=== PATIENT | male | born 1980 | race Hispanic/Latino ===

== ENCOUNTER 2022-09-16 15:01 | Inpatient (IN) | payer OTHER ==
[~2022-09-16] VITALS: Ht 177.8 cm; Wt 77.1 kg
[2022-09-16 17:51] LABS: BASOPHILS % (AUTO) 0.5 % (0.0-5.0); EOSINOPHILS % (AUTO) 1.3 % (0.0-8.0); HEMATOCRIT 47.8 % (42-54); LYMPHOCYTES % (AUTO) 39.2 % (21.0-51.0); MEAN CORPUSCULAR HEMOGLOBIN 28.2 pg (27.0-33.0); MEAN CORPUSCULAR HGB CONC 34.3 g/dL (32.0-36.0); MEAN CORPUSCULAR VOLUME 82.3 fL (79-99); MONOCYTES % (AUTO) 7.3 % (3.0-13.0); NEUTROPHILS % (AUTO) 51.5 % (40.0-77.0); PLATELET COUNT (AUTO) 263 K/uL (130-400); RED BLOOD CELL COUNT(AUTO) 5.81 MIL/uL (4.50-6.20); RED CELL DISTRIBUTION WIDTH 12.9 % (11.0-15.5); WHITE BLOOD COUNT (AUTO) 9.3 K/uL (4.8-10.8)
[2022-09-16] MEDS ORDERED: KETOROLAC 60 MG VIAL (30MG/ML) IM ONE (18:00)
[2022-09-16] MEDS ORDERED: DIAZEPAM 5 MG/ML 2 ML SYG IM ONE (18:00)
[2022-09-16 18:12] LABS: APPEARANCE,URINE CLEAR (CLEAR); BILIRUBIN,URINE NEGATIVE (NEGATIVE); COLOR,URINE LIGHT-YELLOW (YELLOW); GLUCOSE, URINE (UA) >=1000 mg/dL (NEGATIVE); KETONES,URINE NEGATIVE (NEGATIVE); LEUKOCYTE ESTERASE ,URINE NEGATIVE Leu/uL (NEGATIVE); NITRATE,URINE NEGATIVE (NEGATIVE); OCCULT BLOOD,URINE NEGATIVE (NEGATIVE); PH,URINE 5.5 (5.0-8.0); PROTEIN,URINE NEGATIVE (NEGATIVE); UROBILINOGEN,URINE 0.2 mg/dL (0.2-1.0)
[2022-09-16 18:13] LABS: MUCUS,URINE RARE LPF (None Seen); RBC,URINE 0-1 /HPF (0-1); WBC,URINE 0-1 /HPF (0-1)
[2022-09-16 18:20] LABS: CREATININE 0.9 mg/dL (0.5-1.5); POTASSIUM 3.8 mmol/L (3.5-5.1)
[2022-09-16] MEDS ORDERED: 0.9%NACL 1000ML 1,000 ML IV SCH (20:00)
[2022-09-16] MEDS ORDERED: GADOTERATE MEGLUMINE 10 MMOL/20 ML VIAL IV ONE (20:41)
[2022-09-16] MEDS ORDERED: POTASSIUM CHLORIDE 20MEQ/100ML 100 ML IV PRN (22:30)
[2022-09-16] MEDS ORDERED: ACETAMINOPHEN 325 MG TAB PO PRN ×2 (22:30)
[2022-09-16] MEDS ORDERED: MAGNESIUM 2GM PREMIX 50ML 50 ML IV PRN (22:30)
[2022-09-16] MEDS ORDERED: MORPHINE 2 MG SYG IV PRN (22:30)
[2022-09-16] MEDS ORDERED: ONDANSETRON 4MG INJ IV PRN (22:30)
[2022-09-16] MEDS: MORPHINE 4 MG SYG IV PRN (22:55)
[2022-09-16] MEDS: LACTATED RINGERS 1000ML 1,000 ML IV SCH (22:55)
[2022-09-17] MEDS ORDERED: POTASSIUM CHLORIDE 20MEQ/100ML 100 ML IV PRN (00:30)
[2022-09-17] MEDS ORDERED: KCL 20 MEQ ERTAB PO PRN (00:30)
[2022-09-17] MEDS ORDERED: MAGNESIUM 2GM PREMIX 50ML 50 ML IV PRN (00:30)
[2022-09-17] MEDS ORDERED: POTASSIUM CHLORIDE 10% ELIXIR 20 MEQ/15 ML UDCUP PO PRN (00:30)
[2022-09-17] MEDS ORDERED: GLIP5TAB11 PO (06:47)
[2022-09-17] MEDS ORDERED: METF-446 PO (06:47)
[2022-09-17] MEDS ORDERED: ERGO500093 PO (06:47)
[2022-09-17 07:13] LABS: BASOPHILS % (AUTO) 0.5 % (0.0-5.0); EOSINOPHILS % (AUTO) 1.2 % (0.0-8.0); HEMATOCRIT 45.4 % (42-54); LYMPHOCYTES % (AUTO) 27.9 % (21.0-51.0); MEAN CORPUSCULAR HEMOGLOBIN 28.4 pg (27.0-33.0); MEAN CORPUSCULAR HGB CONC 34.1 g/dL (32.0-36.0); MEAN CORPUSCULAR VOLUME 83.2 fL (79-99); MONOCYTES % (AUTO) 7.2 % (3.0-13.0); NEUTROPHILS % (AUTO) 62.9 % (40.0-77.0); PLATELET COUNT (AUTO) 206 K/uL (130-400); RED BLOOD CELL COUNT(AUTO) 5.46 MIL/uL (4.50-6.20); RED CELL DISTRIBUTION WIDTH 12.9 % (11.0-15.5); WHITE BLOOD COUNT (AUTO) 13.3 K/uL (4.8-10.8)
[2022-09-17 07:25] LABS: CREATININE 0.7 mg/dL (0.5-1.5); MAGNESIUM 1.7 mg/dL (1.80-2.40); PHOSPHORUS 4.1 mg/dL (2.5-4.9); POTASSIUM 3.7 mmol/L (3.5-5.1)
[2022-09-17 07:29] LABS: INR 0.93 (0.85-1.15); PROTHROMBIN TIME 10.8 SEC (9.6-11.6)
[2022-09-17] MEDS: INSULIN HUMULIN R 100 UNIT/ML 3ML SQ SCH ×2 (07:30→11:30)
[2022-09-17 07:31] LABS: PARTIAL THROMBOPLASTIN TIME 28.5 SEC (26.3-35.5)
[2022-09-17 07:32] LABS: HEMOGLOBIN A1C 12.4 % (4.0-6.0)
[2022-09-17] MEDS ORDERED: ENOXAPARIN SODIUM 40 MG/0.4 ML SYRINGE SQ SCH (09:00)
[2022-09-17] MEDS ORDERED: FAMOTIDINE 20MG VIAL IV SCH (09:00)
[2022-09-17] MEDS: MORPHINE 4 MG SYG IV PRN (09:27)
[2022-09-17] MEDS: LACTATED RINGERS 1000ML 1,000 ML IV SCH (11:45)
[2022-09-17] MEDS ORDERED: DEXA4TAB PO (13:10)
[2022-09-17] MEDS ORDERED: SOLU-MEDROL 125MG VIAL IVP ONE (13:30)
[2022-09-17 13:36] VITALS: BP 117/76; PULSE 68; RESP 14; O2SAT 99
[2022-09-17 14:34] LABS: RAPID PLASMA REAGIN NONREACTIVE (NONREACTIVE)
== END 2022-09-17 14:10 | disposition home or self-care (01) | DRG 552 ==
LOC: EDH 15:01 → EDHIP 22:16
PROVIDERS: ADMIT Internal Medicine; ATTEND Internal Medicine
DX: M48.061 Spinal stenosis, lumbar region without neurogenic claudication (principal); R15.9 Full incontinence of feces; R32 Unspecified urinary incontinence; Z20.822 Contact with and (suspected) exposure to COVID-19; N31.9 Neuromuscular dysfunction of bladder, unspecified; E11.65 Type 2 diabetes mellitus with hyperglycemia; G89.29 Other chronic pain; F32.A Depression, unspecified; F17.210 Nicotine dependence, cigarettes, uncomplicated; F43.10 Post-traumatic stress disorder, unspecified; Z51.5 Encounter for palliative care
CPT/HCPCS: 36415; 70450; 72156; 72157; 72158; 80048; 81001; 82948; 83036; 83735; 84100; 85025; 85610; 85730; 86592; 86701; 86850; 86900; 86901; 87390; 87635; 93005; G0378; J1650; J1885; J2270; J2930; J3360; J3490; J7120; A9575

== ENCOUNTER 2023-02-26 17:02 | Emergency (ER) | payer OTHER ==
[~2023-02-26] VITALS: Ht 177.8 cm; Wt 81.6 kg
[~2023-02-26 17:02] MED LIST: DEXA4TAB PO; ERGO500093 PO; GLIP5TAB15 PO; METF-446 PO
[2023-02-26 22:08] LABS: BASOPHILS # (AUTO) 0.06 K/uL (0.00-0.20); BASOPHILS % (AUTO) 0.6 % (0.0-5.0); EOSINOPHILS # (AUTO) 0.25 K/uL (0.00-0.70); EOSINOPHILS % (AUTO) 2.6 % (0.0-8.0); HEMATOCRIT 44.9 % (42-54); IMMATURE GRANULOCYTE ABSOLUTE 0.04 K/uL (0-1); LYMPHOCYTES # (AUTO) 3.9 K/uL (1.0-4.8); MEAN CORPUSCULAR HEMOGLOBIN 29.5 pg (27.0-33.0); MEAN CORPUSCULAR HGB CONC 35.2 g/dL (32.0-36.0); MEAN CORPUSCULAR VOLUME 83.9 fL (79-99); MONOCYTES # (AUTO) 0.7 K/uL (0.1-1.0); MONOCYTES % (AUTO) 6.9 % (3.0-13.0); NEUTROPHILS # (AUTO) 4.7 K/uL (1.8-7.7); NEUTROPHILS % (AUTO) 48.5 % (40.0-77.0); PLATELET COUNT (AUTO) 261 K/uL (130-400); RED BLOOD CELL COUNT(AUTO) 5.35 MIL/uL (4.50-6.20); RED CELL DISTRIBUTION WIDTH 12.9 % (11.0-15.5); WHITE BLOOD COUNT (AUTO) 9.6 K/uL (4.8-10.8)
[2023-02-26 22:11] LABS: APPEARANCE,URINE CLEAR (CLEAR); BILIRUBIN,URINE NEGATIVE (NEGATIVE); COLOR,URINE LIGHT-YELLOW (YELLOW); GLUCOSE, URINE (UA) >=1000 mg/dL (NEGATIVE); KETONES,URINE NEGATIVE (NEGATIVE); LEUKOCYTE ESTERASE ,URINE NEGATIVE Leu/uL (NEGATIVE); NITRATE,URINE NEGATIVE (NEGATIVE); OCCULT BLOOD,URINE NEGATIVE (NEGATIVE); PROTEIN,URINE NEGATIVE (NEGATIVE); UROBILINOGEN,URINE 0.2 mg/dL (0.2-1.0)
[2023-02-26 22:12] LABS: ADD UA MICROSCOPIC YES
[2023-02-26 22:13] LABS: MUCUS,URINE RARE LPF (None Seen); RBC,URINE 0-1 /HPF (0-1); SQUAMOUS EPITHELIAL CELL,UR RARE /HPF (0-2); WBC,URINE 0-1 /HPF (0-1)
[2023-02-26 22:17] LABS: AMPHET/METH SCREEN,URINE NEGATIVE (NEGATIVE); BARBITURATE SCREEN, URINE NEGATIVE (NEGATIVE); BENZODIAZEPINES SCREEN,URINE NEGATIVE (NEGATIVE); CANNABINOID SCREEN,URINE NEGATIVE (NEGATIVE); COCAINE SCREEN,URINE NEGATIVE (NEGATIVE); OPIATE SCREEN,URINE NEGATIVE (NEGATIVE); PHENCYCLIDINE SCREEN,URINE NEGATIVE (NEGATIVE)
[2023-02-26 22:18] LABS: CREATININE 0.8 mg/dL (0.5-1.5)
[2023-02-26 22:27] LABS: ALBUMIN 4.4 g/dL (3.5-5.0); BILIRUBIN,TOTAL 0.3 mg/dL (0.2-1.0); TOTAL PROTEIN, SERUM 8.7 g/dL (6.0-8.3)
[2023-02-26 22:41] LABS: RAPID GROUP A STREP negative (NEGATIVE)
[2023-02-26 22:58] LABS: INFLUENZA TYPE A Negative For Type A (NEGATIVE); INFLUENZA TYPE B Negative For Type B (NEGATIVE)
[2023-02-26 23:06] LABS: SARS-CoV-2, RNA, NAAT NEGATIVE SARS CoV-2 (NEGATIVE)
[2023-02-27 00:39] VITALS: BP 142/80; PULSE 88; RESP 18; O2SAT 98
== END 2023-02-27 00:46 | disposition home or self-care (01) ==
LOC: EDH 17:02
DX: G89.29 Other chronic pain (principal); M54.50 Low back pain, unspecified; E11.9 Type 2 diabetes mellitus without complications; Z79.52 Long term (current) use of systemic steroids; Z79.84 Long term (current) use of oral hypoglycemic drugs; Z20.822 Contact with and (suspected) exposure to COVID-19
CPT/HCPCS: 36415; 70450; 72125; 72128; 72131; 80053; 80305; 81001; 84484; 85025; 87635; 87804; 87880; 93005

== ENCOUNTER 2024-01-24 12:00 | Emergency (ER) | payer OTHER ==
[~2024-01-24] VITALS: Ht 175.3 cm; Wt 77.1 kg
[2024-01-24 12:33] LABS: BASOPHILS # (AUTO) 0.05 K/uL (0.00-0.20); BASOPHILS % (AUTO) 0.3 % (0.0-5.0); EOSINOPHILS # (AUTO) 0.02 K/uL (0.00-0.70); EOSINOPHILS % (AUTO) 0.1 % (0.0-8.0); HEMATOCRIT 46.3 % (42-54); IMMATURE GRANULOCYTE ABSOLUTE 0.09 K/uL (0-1); LYMPHOCYTES # (AUTO) 1.1 K/uL (1.0-4.8); LYMPHOCYTES % (AUTO) 7.6 % (21.0-51.0); MEAN CORPUSCULAR HEMOGLOBIN 28.9 pg (27.0-33.0); MEAN CORPUSCULAR HGB CONC 34.3 g/dL (32.0-36.0); MEAN CORPUSCULAR VOLUME 84.2 fL (79-99); MONOCYTES # (AUTO) 0.6 K/uL (0.1-1.0); MONOCYTES % (AUTO) 3.9 % (3.0-13.0); NEUTROPHILS # (AUTO) 13.2 K/uL (1.8-7.7); NEUTROPHILS % (AUTO) 87.5 % (40.0-77.0); PLATELET COUNT (AUTO) 231 K/uL (130-400); RED CELL DISTRIBUTION WIDTH 13.2 % (11.0-15.5)
--- NOTE | 2024-01-24 12:43 | NUR ---
PENDING GFR RESULTS & CONSENT FOR CT EXAM.
[2024-01-24 12:46] LABS: CREATININE 0.9 mg/dL (0.5-1.3)
[2024-01-24] MEDS ORDERED: IOHEXOL-350 75 ML VIAL IV ONE (12:59)
[2024-01-24] MEDS: dexaMETHasone SOD PHOSPHATE 4 MG/ML 1ML VIAL IVP ONE (13:05)
[2024-01-24] MEDS: methoCARBamol 500 MG TABLET PO STA (13:05)
[2024-01-24] MEDS: LIDOCAINE 4% ADH..PATCH TP STA (13:05)
[2024-01-24] MEDS: ketOROlac 15MG/ML VIAL (15MG/ML) IV STA (13:05)
--- NOTE | 2024-01-24 14:20 | HMCIMG ---
CT LUMBAR SPINE W/WO CONTRAST HISTORY: Back pain COMPARISON: 02/26/2023 TECHNIQUE: Multiple sequential axial images of the lumbar spine were obtained including post processing sagittal and coronal reconstruction images. Patient was not given contrast through intravenous route. FINDINGS: There are degenerative changes with lumbar spine spondylosis. Bladder is distended. There is no loss of vertebral height. Evaluation for disc and cord pathology is limited with CT study. No evidence of fracture or dislocation is seen. IMPRESSION: 1. No fracture is seen. DJD. CT was performed with one or more following dose reduction techniques: automated exposure control, adjustment of the mA and kv according to patient's size, or use of a iterative reconstruction technique.
[2024-01-24 15:53] LABS: APPEARANCE,URINE CLEAR (CLEAR); BILIRUBIN,URINE NEGATIVE (NEGATIVE); COLOR,URINE LIGHT-YELLOW (YELLOW); GLUCOSE, URINE (UA) >=1000 mg/dL (NEGATIVE); KETONES,URINE 10 mg/dL (NEGATIVE); LEUKOCYTE ESTERASE ,URINE NEGATIVE Leu/uL (NEGATIVE); NITRATE,URINE NEGATIVE (NEGATIVE); OCCULT BLOOD,URINE NEGATIVE (NEGATIVE); PH,URINE 7.5 (5.0-8.0); PROTEIN,URINE NEGATIVE (NEGATIVE); UROBILINOGEN,URINE 0.2 mg/dL (0.2-1.0)
[2024-01-24 15:54] LABS: ADD UA MICROSCOPIC YES
[2024-01-24 15:55] LABS: RBC,URINE 0-1 /HPF (0-1); WBC,URINE 0-1 /HPF (0-1)
[2024-01-24 15:59] LABS: AMPHET/METH SCREEN,URINE NEGATIVE (NEGATIVE); BARBITURATE SCREEN, URINE NEGATIVE (NEGATIVE); BENZODIAZEPINES SCREEN,URINE NEGATIVE (NEGATIVE); CANNABINOID SCREEN,URINE NEGATIVE (NEGATIVE); COCAINE SCREEN,URINE NEGATIVE (NEGATIVE); OPIATE SCREEN,URINE NEGATIVE (NEGATIVE); PHENCYCLIDINE SCREEN,URINE NEGATIVE (NEGATIVE)
[2024-01-24 16:09] VITALS: BP 121/70; PULSE 61; RESP 16; TEMP 98.6; O2SAT 98
[2024-01-24] MEDS ORDERED: METH-811 PO (16:26)
[2024-01-24] MEDS ORDERED: NAPR-1023 PO (16:26)
--- NOTE | 2024-01-24 16:30 | ERN ---
ED Note History of Present Illness Stated Complaint: EXCACERBATED CHRONIC BACK PAIN Chief Complaint: Multiple Complaints Time Seen by MD: 12:08 Time Seen by Midlevel: 12:11 Dictation: 43-year-old male coming in complaining of lower back pain onset just prior to arrival. Patient states he has chronic by pain due to bulging disc L4 through L5, sees Dr. Mars for this . Today when he was at work began with sudden back pain. Denies any incontinence or saddle anesthesia. Allergies: Coded Allergies: No Known Drug Allergies (Unverified Allergy, Unknown, 09/16/22) Home Meds Active Scripts Dexamethasone (Dexamethasone) 4 Mg Tablet, 16 MG PO DAILY for 10 Days, #40 TAB Prov:MIKE FUENTES MD 09/17/22 Reported Medications Glipizide (Glipizide) 5 Mg Tablet, 5 MG PO BID, TAB 09/17/22 Ergocalciferol (Vitamin D2) (Vitamin D2) 1,250 Mcg Capsule, 1250 MCG PO DAILY, CAP 09/17/22 Metformin HCl (Metformin HCl) 1,000 Mg Tablet, 1000 MG PO BID, TAB 09/17/22 Past Medical History Past Medical History: Diabetes-Type II, Migraines, Other Additional Past Medical Hx: PTSD, GOUT, CHRONIC BACK PAIN Surgical History: None Surgical History Other: BACK SURGERY Review of System Dictation Constitutional: Negative for fever,chills, and weight loss Eyes: Negative for injury, pain,redness, and discharge ENT: Negative for injury,pain or swelling Cardiovascular: Negative for chest pain, palpitations, and edema Respiratory: Negative for shortness of breath, cough, and wheezing, Abdomen/GI: Negative for abdominal pain, nausea, vomiting, diarrhea, and constipation Back: Negative for injury and pain : Negative for injury, bleeding and discharge MS/Extremity: Negative for injury and deformity Skin: Negative for rash, and discoloration Neuro: Negative for headache, weakness, numbness, tingling, and seizure complaining of lower back pain, tingling sensation to right lower extremity Psych: Negative for suicide ideation, homicidal ideation, and hallucinations Review of Systems: was completed Initial Vital Sign VS Vital Signs Date Time Temp Pulse Resp B/P (MAP) Pulse Ox O2 Delivery O2 Flow Rate FiO2 01/24/24 12:02 97.5 95 18 120/86 100 0 01/24/24 12:56 Room Air* 21 Physical Exam Dictation General: awake, alert, NAD Head/Face: Normocephalic, atraumatic Eyes: PERRL, EOMI, vision at baseline ENT: oral cavity clear, TMs clear, no signs of infection Neck: Trachea midline, supple, no nuchal rigidity Cardiovascular: RRR, normal S1/S2, No MRGs, no JVD Respiratory: CTAB, no respiratory distress, No rales or wheezes Abdomen: Soft, non-tender, non-distended, normal bowel sounds, no guarding or rebound. Skin: Warm, dry, normal turgor, no rash MS/Extremity: Pulses equal, no cyanosis, neurovascular intact, FROM Neuro: COAx4, GCS 15, strength 5/5, CN 2-12 intact, normal cerebellar exam, normal gait, complaining of lower back pain, says tingling to right lower extremity Psych: Normal behavior, mood, and affect normal Results (Laboratory/Radiology) Laboratory/Radiology Laboratory Tests Test 01/24/24 12:20 01/24/24 15:42 White Blood Count 15.0 K/uL (4.8-10.8) H Red Blood Count 5.50 MIL/uL (4.50-6.20) Hemoglobin 15.9 g/dL (14.0-18.0) Hematocrit 46.3 % (42-54) Mean Corpuscular Volume 84.2 fL (79-99) Mean Corpuscular Hemoglobin 28.9 pg (27.0-33.0) Mean Corpuscular Hemoglobin Concent 34.3 g/dL (32.0-36.0) Red Cell Distribution Width 13.2 % (11.0-15.5) Platelet Count 231 K/uL (130-400) Mean Platelet Volume 9.6 fL (7.5-10.5) Immature Granulocyte % (Auto) 0.6 % (0-1) Neutrophils (%) (Auto) 87.5 % (40.0-77.0) H Lymphocytes (%) (Auto) 7.6 % (21.0-51.0) L Monocytes (%) (Auto) 3.9 % (3.0-13.0) Eosinophils (%) (Auto) 0.1 % (0.0-8.0) Basophils (%) (Auto) 0.3 % (0.0-5.0) Neutrophils # (Auto) 13.2 K/uL (1.8-7.7) H Lymphocytes # (Auto) 1.1 K/uL (1.0-4.8) Monocytes # (Auto) 0.6 K/uL (0.1-1.0) Eosinophils # (Auto) 0.02 K/uL (0.00-0.70) Basophils # (Auto) 0.05 K/uL (0.00-0.20) Absolute Immature Granulocyte (auto 0.09 K/uL (0-1) Nucleated Red Blood Cells 0.0 % (0.0-0.19) White Cell Morphology Comment See comments Sodium Level 141 mmol/L (136-145) Potassium Level 4.0 mmol/L (3.5-5.1) Chloride Level 102 mmol/L (101-111) Carbon Dioxide Level 29 mmol/L (21-32) Blood Urea Nitrogen 11 mg/dL (7-18) Creatinine 0.9 mg/dL (0.5-1.3) Glomerular Filtration Rate Calc 108 mL/min (>90) Random Glucose 222 mg/dL (70-105) H Total Calcium 9.1 mg/dL (8.5-10.1) Urine Color LIGHT-YELLOW (YELLOW) Urine Appearance CLEAR (CLEAR) Urine pH 7.5 (5.0-8.0) Urine Specific [place] OVER (1.001-1.031) Urine Protein NEGATIVE mg/dL (NEGATIVE) Urine Glucose (UA) >=1000 mg/dL (NEGATIVE) H Urine Ketones 10 mg/dL (NEGATIVE) H Urine Occult Blood NEGATIVE (NEGATIVE) Urine Nitrate NEGATIVE (NEGATIVE) Urine Bilirubin NEGATIVE mg/dL (NEGATIVE) Urine Urobilinogen 0.2 mg/dL (0.2-1.0) Urine Leukocyte Esterase NEGATIVE Usman/uL Urine RBC 0-1 /HPF (0-1) Urine WBC 0-1 /HPF (0-1) Urine Bacteria None /HPF (None Seen) Urine Opiates Screen NEGATIVE (NEGATIVE) Urine Barbiturates Screen NEGATIVE (NEGATIVE) Urine Phencyclidine Screen NEGATIVE (NEGATIVE) Urine Amphetamines Screen NEGATIVE (NEGATIVE) Urine Benzodiazepines Screen NEGATIVE (NEGATIVE) Urine Cocaine Screen NEGATIVE (NEGATIVE) Urine Marijuana (THC) Screen NEGATIVE (NEGATIVE) Labs Reviewed?: Yes ED Course ED Course Orders Procedure Category Date Status Time Cbc With Differential LAB 01/24/24 Complete 12:13 Basic Metabolic Panel LAB 01/24/24 Complete 12:13 Ct Lumbar Spine W/Wo CT 01/24/24 Resulted Contrast 12:13 Ketorolac PHA 01/24/24 Complete Tromethamine 15mg/Ml 12:14 Dexamethasone 4mg/Ml PHA 01/24/24 Complete 1ml Vial (Dexametha 12:30 Methocarbamol PHA 01/24/24 Complete (Methocarbamol) 12:14 Lidocaine (Lidocaine PHA 01/24/24 Complete Patch 4%) 12:14 Iohexol (Omnipaque) PHA 01/24/24 Complete 12:59 Urinalysis Profile LAB 01/24/24 Complete 15:44 Drug Screen Urine LAB 01/24/24 Complete 15:44 Current Medications Medications (Trade) Dose Ordered Sig/Ariana Route PRN Reason Start Time Stop Time Status Last Admin Dose Admin Dexamethasone Sodium Phosphate (dexaMETHasone 4MG/ML 1ML VIAL) 6 mg ONCE ONCE IVP 01/24/24 12:30 01/24/24 12:31 DC 01/24/24 13:05 Iohexol (Omnipaque) 75 ml STK-MED ONCE IV 01/24/24 12:59 01/24/24 13:00 DC Ketorolac Tromethamine (toRADol) 15 mg ONCE STAT IV 01/24/24 12:14 01/24/24 12:20 DC 01/24/24 13:05 Lidocaine (Lidocaine Patch 4%) 1 each ONCE STAT TP 01/24/24 12:14 01/24/24 12:20 DC 01/24/24 13:05 Methocarbamol (methoCARBamol) 1,000 mg ONCE STAT PO 01/24/24 12:14 01/24/24 12:20 DC 01/24/24 13:05 Vital Signs Date Time Temp Pulse Resp B/P (MAP) Pulse Ox O2 Delivery O2 Flow Rate FiO2 01/24/24 16:09 98.6 61 16 121/70 98 Room Air* 0 21 01/24/24 12:56 98.6 87 18 165/72 99 Room Air* 0 21 01/24/24 12:02 97.5 95 18 120/86 100 0 Medical Decision Making MDM MDM: 43-year-old male coming in complaining of lower back pain onset just prior to arrival. Patient states he has chronic by pain due to bulging disc L4 through L5, sees Dr. Mars for this . Today when he was at work began with sudden back pain. Denies any incontinence or saddle anesthesia. CBC shows mild leukocytosis, no anemia, no thrombocytopenia. Chemistry shows hyperglycemia at 2:22 a.m., UA shows no evidence of urinary tract infection or hematuria.CT of the L-spine shows degenerative changes with lumbar spine spondylosis, no loss in vertebral height, no fracture seen. DJD. On reassessment, patient states feels better is able to ambulate in his able to urinate. States tingling has improved. States he will follow up with Dr. Mars. Differential diagnosis: Chronic back pain, spinal stenosis, muscle spasm Rationale: Tests considered and ordered secondary to shared decision making include: Previous outside records reviewed: Old ER visits. Risk of complication and/or morbidity or mortality of patient management: None Medications-Per medication reconciliation Need for hospitalization: Patient does not meet criteria for hospitalization. Need for emergency major/minor surgery: No There are no social concerns with this patient. Prescription drug management Prescriptions will include symptomatic care Patient's prior external medical records from other ER visits were reviewed by me as indicated. Prior testing and results from previous visits were reviewed. Prior tests were taken into account with medical decision making and resource utilization, independent historian/historians were used to obtain complete medical history. I independently interpreted the test that were performed, results were reviewed by me and considered findings on radiology if ordered. Medical management and examination interpretation discussions were had by me with other qualified healthcare professionals as indicated for the patient's care. DX & DISP Disposition: Discharge Departure Impression: Primary Impression: Chronic back pain Condition: Stable Scripts Naproxen (Naproxen) 500 Mg Tablet 1 TAB PO BID for pain for 14 Days, #28 TAB 0 Refills Prov: CARMONA,EUGENIO SERVICE SUPPORT REPRESENTATIVE 01/24/24 Methocarbamol (Methocarbamol) 500 Mg Tablet 1 TAB PO TID for 5 Days, #15 TAB 0 Refills Prov: CARMONA,EUGENIO SERVICE SUPPORT REPRESENTATIVE 01/24/24 Additional Instructions: Please follow up with your neurosurgeon specialist, return to the ER if symptoms worsen. Try warm packs, stretching exercise to see if this can alleviate your pain. Continue take her gabapentin as prescribed and also I prescribed him naproxen for the inflammation and mother, both are muscle spasms. Referrals: SELF,REFERRAL (PCP) RADHIKA MARS MD Time of Disposition: 16:27 I have reviewed the case, and I agree with, Diagnosis and Plan EUGENIO CARMONA NP Jan 24, 2024 16:30
== END 2024-01-24 16:41 | disposition home or self-care (01) ==
LOC: EDH 12:00
DX: G89.29 Other chronic pain (principal); M54.50 Low back pain, unspecified; E11.9 Type 2 diabetes mellitus without complications; M10.9 Gout, unspecified; Z79.52 Long term (current) use of systemic steroids; Z79.84 Long term (current) use of oral hypoglycemic drugs
CPT/HCPCS: 99285; 96374; 72133; 96375; 80048; 80305; 85025; 36415; 81001; J1100; J1885; Q9967

== ENCOUNTER → 2024-06-06 | Outpatient (CLI) | payer OTHER ==
[~2024-06-06] MED LIST changes: +METH-811 PO; +NAPR-1194 PO
--- NOTE | 2024-06-06 14:47 | HMCIMG ---
MRI of the lumbar spine without gadolinium Clinical Information: M54.16 RADICULOPATHY LUMBAR AREA Comparison: None Technique: Sagittal T1 and T2 FSE, Sagittal STIR and Sagittal proton density images were completed through the lumbosacral spine. Axial T1, T2 and proton density images were also acquired. FINDINGS: There is straightening of the spine consistent with spasm. No fractures or dislocations are identified. Vertebral body height and disc height is preserved at all levels. The bone marrow signal is normal for age. The spinal canal contents are preserved. The conus terminates at a normal level at T12 to L2. The paraspinal muscles and other tissues show no significant abnormalities. Evaluation of the lumbar spine by level: T12-L1: There is no spinal canal stenosis. No disc herniation or bulge is noted. There is no neural foraminal stenosis, impingement, or narrowing. L1-L2: There is no spinal canal stenosis. No disc herniation or bulge is noted. There is no neural foraminal stenosis, impingement, or narrowing. L2-L3: There is no spinal canal stenosis. No disc herniation or bulge is noted. There is no neural foraminal stenosis, impingement, or narrowing. L3-L4: There is no spinal canal stenosis. No disc herniation or bulge is noted. There is no neural foraminal stenosis, impingement, or narrowing. L4-L5: There is no spinal canal stenosis. There is a central zone disc protrusion causing bilateral mild nerve root impingement. L5-S1: There is no spinal canal stenosis. No disc herniation or bulge is noted. There is no neural foraminal stenosis, impingement, or narrowing. Impression: Central zone disc protrusion L4-5 causing bilateral mild nerve root impingement. Lumbar spasm.
== END | disposition home or self-care (01) ==
LOC: RAH 12:55
PROVIDERS: ATTEND Neurological Surgery
DX: M51.16 Intervertebral disc disorders with radiculopathy, lumbar region (principal); M51.362 Other intervertebral disc degeneration, lumbar region with discogenic back pain and lower extremity pain; M48.8X6 Other specified spondylopathies, lumbar region; M62.830 Muscle spasm of back; G89.4 Chronic pain syndrome
CPT/HCPCS: 72148